=== PATIENT | male | born 1970 | race Caucasian/White ===

== ENCOUNTER 2020-03-01 10:52 | Outpatient (REF) | payer OTHER, SELFPAY | END 2020-03-01 10:53 | disposition home or self-care (01) | LOC: HO.HMGCX 10:52 | PROVIDERS: PCP Internal Medicine; Visit Provider Internal Medicine | DX: Z13.89 Encounter for screening for other disorder (principal) ==

== ENCOUNTER 2020-03-07 10:57 | Outpatient (REF) | payer OTHER, SELFPAY ==
--- NOTE | 2020-03-07 | US_ITS ---
EXAMINATION: US ABDOMEN COMPLETE CLINICAL INFORMATION: Elevated LFTs. COMPARISON: Abdominal ultrasound dated 02/17/2018. TECHNIQUE: Real-time imaging of the abdominal viscera. FINDINGS: PANCREAS: Normal. ABDOMINAL AORTA: The proximal, mid, and distal segments are normal in caliber. INFERIOR VENA CAVA: Visualized portions are normal. LIVER: The liver is normal in size. The liver contour is normal. There is diffuse increased liver echogenicity. No focal hepatic lesion. There is no intrahepatic biliary duct dilatation seen. GALLBLADDER: The gallbladder is physiologically distended without evidence of stones, sludge, wall thickening or pericholecystic fluid. There is an echogenic polyp measuring 0.5 x 0.6 x 0.6 cm. COMMON BILE DUCT: Normal in caliber measuring 0.5 cm in diameter. RIGHT KIDNEY: Normal. No hydronephrosis. No renal calculi or focal parenchymal lesions. The kidney measures 10.7 cm in maximum dimension. LEFT KIDNEY: Normal. No hydronephrosis. No renal calculi or focal parenchymal lesions. The kidney measures 11.3 cm in maximum dimension. SPLEEN: Normal. The spleen measures 10.7 cm in maximum dimension. FREE FLUID: None. IMPRESSION: Non-mobile echogenic polyp along the anterior gallbladder wall. No echogenic stones are wall thickening. Mild hepatic steatosis without focal lesion. The rest of the abdominal ultrasound is unremarkable.
== END 2020-03-07 10:58 | disposition home or self-care (01) ==
LOC: HO.HMGCX 10:57
PROVIDERS: PCP Internal Medicine; Visit Provider Internal Medicine
DX: R79.89 Other specified abnormal findings of blood chemistry (principal)
CPT/HCPCS: 76700

== ENCOUNTER 2020-10-27 11:39 | Outpatient (REF) | payer OTHER, SELFPAY ==
--- NOTE | ~2020-10-27 | XR_ITS ---
EXAMINATION: XR HIP, LEFT XR PRE MRI SCREENING CLINICAL INFORMATION: Rule out foreign body. Detached retina 20 years ago. Pre-MRI. Left lower quadrant pain. COMPARISON: None TECHNIQUE: Two views of the left hip. 3 views of the paranasal sinuses. FINDINGS: 3 views of the paranasal sinuses do not demonstrate a radiopaque foreign body. Visualized paranasal sinuses are unremarkable. No bony destruction identified. Mastoid air cells aerated. 2 views of the left hip do not demonstrate any evidence of acute fracture or dislocation. Hip joint space is maintained. No significant spurring is seen. No spurring about the greater trochanter is noted. XR/XR pre mri screening IMPRESSION: No significant bony abnormality of the left hip identified. No radiopaque foreign body seen about the orbits.
--- NOTE | ~2020-10-27 | XR_ITS ---
EXAMINATION: XR HIP, LEFT XR PRE MRI SCREENING CLINICAL INFORMATION: Rule out foreign body. Detached retina 20 years ago. Pre-MRI. Left lower quadrant pain. COMPARISON: None TECHNIQUE: Two views of the left hip. 3 views of the paranasal sinuses. FINDINGS: 3 views of the paranasal sinuses do not demonstrate a radiopaque foreign body. Visualized paranasal sinuses are unremarkable. No bony destruction identified. Mastoid air cells aerated. 2 views of the left hip do not demonstrate any evidence of acute fracture or dislocation. Hip joint space is maintained. No significant spurring is seen. No spurring about the greater trochanter is noted. XR/XR hip LT min 2V IMPRESSION: No significant bony abnormality of the left hip identified. No radiopaque foreign body seen about the orbits.
== END 2020-10-27 11:40 | disposition home or self-care (01) ==
LOC: HO.MRI 11:39
PROVIDERS: Visit Provider Internal Medicine
DX: M25.552 Pain in left hip (principal)
CPT/HCPCS: 73502

== ENCOUNTER 2020-11-13 10:44 | Outpatient (REF) | payer OTHER, SELFPAY | END 2020-11-13 10:45 | disposition home or self-care (01) | LOC: HO.MRI 10:44 | PROVIDERS: PCP Internal Medicine; Visit Provider Internal Medicine | DX: Z13.89 Encounter for screening for other disorder (principal) ==

== ENCOUNTER → 2021-01-31 10:05 | Outpatient (BNVA) | payer OTHER, SELFPAY | PROVIDERS: PCP Internal Medicine; Referring Provider Internal Medicine; Visit Provider Surgery | DX: K82.4 Cholesterolosis of gallbladder (principal) | CPT/HCPCS: 99202 ==

== ENCOUNTER 2021-03-15 09:10 | Outpatient (REF) | payer OTHER, SELFPAY ==
--- NOTE | 2021-03-15 | EMG_ITS ---
Right tibial and peroneal motor and sensory studies were performed. Right superficial peroneal and sural sensory studies were performed. Tibial H-reflex was obtained and paraspinal muscles were tested with a needle. IMPRESSION: This study did not reveal signs of generalized peripheral neuropathy. 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 MD TONY Sparks/JENNIFER / [id number]
--- NOTE | ~2021-03-15 | US_ITS ---
EXAMINATION: US ABDOMEN LIMITED CLINICAL INFORMATION: Cholesterolosis of the gallbladder. COMPARISON: Ultrasound abdomen complete 03/07/2020 and 02/17/2018. TECHNIQUE: Real-time imaging of the right upper quadrant abdominal viscera. FINDINGS: PANCREAS: The head and body the pancreas are normal. The tail is not well seen due to bowel gas. LIVER: The liver is normal in size. The liver contour is normal. Liver echotexture is slightly increased. No focal hepatic lesion. There is no intrahepatic biliary duct dilatation seen. GALLBLADDER: There are multiple gallbladder wall polyps. The largest measures 0.5 x 0.5 x 0.6 cm. No gallstones are seen. The gallbladder wall is otherwise normal. COMMON BILE DUCT: Normal in caliber measuring 0.5 cm in diameter. RIGHT KIDNEY: Normal. No hydronephrosis. No renal calculi or focal parenchymal lesions. The kidney measures 10.6 cm in maximum dimension. FREE FLUID: None. US/US abdomen limited IMPRESSION: Gallbladder wall polyps stable from prior exam. Slightly echogenic liver probably representing fatty infiltration. Limited visualization of the tail the pancreas.
== END 2021-03-15 09:11 | disposition home or self-care (01) ==
LOC: HO.NEURO 09:10
PROVIDERS: PCP Internal Medicine; Visit Provider Family Medicine
DX: G62.9 Polyneuropathy, unspecified (principal); K82.4 Cholesterolosis of gallbladder
CPT/HCPCS: 76705; 95886; 95909

== ENCOUNTER → 2021-03-22 15:25 | Outpatient (BNVA) | payer OTHER, SELFPAY | PROVIDERS: PCP Internal Medicine; Referring Provider Internal Medicine; Visit Provider Surgery | DX: K82.4 Cholesterolosis of gallbladder (principal) | CPT/HCPCS: 99212 ==

== ENCOUNTER 2023-02-06 14:13 | Outpatient (AMB) | payer OTHER, SELFPAY ==
--- NOTE | 2023-02-06 14:15 | A.OFFVIS_ITS ---
Intake Vital Signs 02/06/23 14:21 Height 5 ft 4 in Weight 180 lb BMI 30.9 BP 121/77 Blood Pressure Location Rt brachial Position Sitting Pulse 72 Intake Visit Reasons: Hemorrhoids Intake Note: This patient presents for an assessment for hemorrhoids. Patient c/o; reports no complaints, reports had [place]08[place] [facility] Stroboroma Operator Required: No Accompanied by: Self / Same As Patient Allergies morphine Allergy (Verified 02/06/23 14:22) Swelling Medication List - Last Reconciled 02/06/23 by Freddie Rodriguez MD dorzolamide 2% 1 drp ophthalmic (eye) TID hydrochlorothiazide 25 mg PO DAILY latanoprost 0.005% 1 drp ophthalmic (eye) DAILY losartan 25 mg PO DAILY timolol maleate 0.5% 1 drp ophthalmic (eye) DAILY PRN valacyclovir 500 mg PO DAILY HPI Hemorrhoids HPI Details 52-year-old male referred for hemorrhoid s. He says that he has this occasional pinching pain in his anus. He says his notices for about 8 months now. He says that this does not happen frequently. He says that he would be spontaneous and random. He denies any bleeding. He denies any mass He says he did have some history of constipation in the past. He says that this has improved with intake of fiber supplements. He had a colonoscopy in [facility] last December, showing hemorrhoids as well as small polyp. [facility] Medical History (Updated 02/06/23 @ 14:39 by Freddie Rodriguez MD) Internal and external hemorrhoids without complication Chronic back pain Gallbladder polyp Surgical History History of colonoscopy (~01/14/23) Family History Family/Other Breast cancer Social History Alcohol intake: never Patient Tobacco Use Status: Never used Tobacco Review of Systems Const Denies chills and Denies fever(s) Card Denies chest pain, Denies dyspnea and Denies dyspnea on exertion Resp Denies cough, Denies dyspnea and Denies dyspnea on exertion GI Denies hematochezia and Denies change in bowel habits Denies hematuria and Denies difficulty urinating Musc Reports back pain and Denies limited range of motion Neuro Denies focal weakness and Denies convulsions Psych Denies depression and Denies mood swings Physical Exam Vital Signs: Last Vital Signs Pulse 72 02/06/23 14:21 BP 121/77 02/06/23 14:21 BMI result Body Mass Index 30.9 Const General: comfortable and no acute distress Orientation/consciousness: patient oriented x3 Neck Neck: Yes no lymphadenopathy Resp Auscultation: clear to auscultation bilaterally Cardio Rhythm: regular rhythm GI Other: Rectal exam - non bulky external hemorrhoids, no other lesions, anoscopy as described Palpation (GI): Soft to palpation, nontender and no guarding Neuro General: patient oriented x3 Office Procedures Anoscopy He was in jimenez-knife position. The anoscope was gently inserted. A full examination of the anal canal was done. He did have internal and external hemorrhoids on both the left and right side. These were moderate size. There were no other lesions. There was no fissure. There was no bleeding. There was no induration on digital exam. There was no tenderness [id number] Assessment & Plan Assessment & Plan (1) Internal and external hemorrhoids without complication: Code(s): K64.4 - Residual hemorrhoidal skin tags; K64.8 - Other hemorrhoids Plan: He has internal and external hemorrhoids as described above. He has very minimal symptoms. He describes occasional itching pain I told him that I would not recommend proceeding with hemorrhoidectomy at this time. I told him a ever that if he has worsening symptoms or his bleeding, and frequent swelling, he can come back to the office to be re-evaluated I also emphasized to him the importance of continuing with his fiber supplement. Coding Level of Care Code New Pt Level 3 (12922) Diagnoses Internal and external hemorrhoids without complication K64.4; K64.8 CPT Codes Details - CPT: 23355-[id number] ([id number])
[2023-02-06 14:21] VITALS: BP 121/77; PULSE 72; BMI 30.9
== END 2023-02-06 14:35 | disposition home or self-care (01) ==
PROVIDERS: PCP Internal Medicine; Referring Provider Internal Medicine; Visit Provider Surgery
DX: K64.8 Other hemorrhoids (principal)
CPT/HCPCS: 46600; 99213

== ENCOUNTER → 2023-02-06 14:13 | Outpatient (BNVA) | payer OTHER, SELFPAY | PROVIDERS: PCP Internal Medicine; Referring Provider Internal Medicine; Visit Provider Surgery | DX: K64.4 Residual hemorrhoidal skin tags (principal); K64.8 Other hemorrhoids | CPT/HCPCS: 46600; 99212 ==

== ENCOUNTER 2023-06-24 13:56 | Outpatient (REF) | payer OTHER, SELFPAY ==
[2023-06-24 15:09] LABS: Influenza A PCR NEGATIVE (Negative); Influenza B PCR NEGATIVE (Negative); Resp Syncy Virus RNA Qual PCR NEGATIVE (Negative); SARS COV2 PCR INHOUSE POSITIVE (Negative)
[2023-06-24 17:26] LABS: MANUAL DIFF FLAG NO
[2023-06-24 17:30] LABS: Basophils Absolute Auto 0.1 X10*3/uL (0.0-0.2); Basophils Percent Auto 0.9 % (0-2); Eosinophils Absolute Auto 0.3 X10*3/uL (0.0-0.4); Eosinophils Percent Auto 4.6 % (0-4); Hematocrit 43.2 % (42.0-52.0); Hemoglobin 15.3 g/dl (14.0-18.0); Imm Gran Abs Auto 0.02 X10*3/uL (0.00-0.03); Imm Gran Pct Auto 0.4 % (0.0-0.4); Lymphocytes Absolute Auto 1.3 X10*3/uL (1.2-4.9); Lymphocytes Percent Auto 24.2 % (20-40); Mean Corpuscular HGB Conc 35.4 g/dl (31.0-36.0); Mean Corpuscular Hemoglobin 34.6 pg (27.0-33.0); Mean Corpuscular Volume 97.7 fL (80.0-98.0); Mean Platelet Volume 12.2 fL (9.4-12.4); Monocytes Absolute Auto 0.7 X10*3/uL (0.1-1.2); Monocytes Percent Auto 12.2 % (2-11); Neutrophils Absolute Auto 3.1 x10*3/uL (2.0-8.3); Neutrophils Percent Auto 57.7 % (45-73); Platelet Count 206 X10*3/uL (160-400); Red Blood Count 4.42 X10*6/uL (4.60-5.80); Red Cell Distribution Width 11.5 % (11.0-16.0); White Blood Count 5.4 X10*3/uL (4.8-10.8)
[2023-06-24 18:07] LABS: Alanine Aminotransferase 52 U/L (0-40); Albumin Level 4.1 g/dL (3.5-5.0); Alkaline Phosphatase 88 U/L (39-117); Anion Gap 12 (12-20); Aspartate Amino Transferase 32 U/L (5-37); Blood Urea Nitrogen 10 mg/dL (9-16); Calcium 9.4 mg/dL (8.4-10.2); Carbon Dioxide 29 mmol/L (22-29); Chloride 104 mmol/L (96-108); Estimated Glomerular Filt Rate > 60; Glucose Random 50 mg/dL (60-115); Potassium 3.5 mmol/L (3.3-5.1); Sodium 141 mmol/L (135-145); Total Protein 7.5 g/dL (6.5-8.0)
== END 2023-06-24 13:57 | disposition home or self-care (01) ==
LOC: HO.CHCLNP 13:56
PROVIDERS: Visit Provider Family Medicine
DX: Z11.52 Encounter for screening for COVID-19 (principal); J06.9 Acute upper respiratory infection, unspecified; R05.3 Chronic cough
CPT/HCPCS: 0241U; 36415; 80053; 85025

== ENCOUNTER 2023-06-30 10:41 | Outpatient (REF) | payer OTHER, SELFPAY ==
--- NOTE | ~2023-06-30 | XR_ITS ---
EXAMINATION: XR CHEST CLINICAL INFORMATION: Upper respiratory tract infection. COMPARISON: None available. TECHNIQUE: 2 views of the chest were obtained. FINDINGS: There is no gross pneumothorax. Lung volumes are low. Heart size is normal. Mild dextroscoliosis of the thoracic spine. Degenerative changes in the thoracic spine. No pleural effusion. No focal consolidation to suggest pneumonia. XR/XR chest 2V IMPRESSION: No evidence of pneumonia.
== END 2023-06-30 10:42 | disposition home or self-care (01) ==
LOC: HO.XRAY 10:41
PROVIDERS: PCP Family Medicine; Visit Provider Family Medicine
DX: J06.9 Acute upper respiratory infection, unspecified (principal)
CPT/HCPCS: 71046

== ENCOUNTER 2023-07-08 10:10 | Outpatient (REF) | payer OTHER, SELFPAY ==
[2023-07-08 15:03] LABS: Estimated Average Glucose 71 mg/dL; Hemoglobin A1c % 4.1 % (<6.0)
[2023-07-08 15:20] LABS: Glucose Random 66 mg/dL (60-115)
[2023-07-08 15:40] LABS: Insulin 11 uU/mL (2-29)
== END 2023-07-08 10:11 | disposition home or self-care (01) ==
LOC: HO.CHCLDS 10:10
PROVIDERS: Visit Provider Nurse Practitioner Primary Care
DX: E16.2 Hypoglycemia, unspecified (principal)
CPT/HCPCS: 36415; 82947; 83036; 83525

== ENCOUNTER 2024-10-13 11:55 | Outpatient (REF) | payer OTHER, SELFPAY ==
--- OUTSIDE RECORDS SUMMARY | 2024-10-13 12:43 | XMS_ITS | Encounter Summary ---
Author Organization [employer] Address [address] [place] [address] Care Team Providers Care Tower Switch Operator Name Role Phone Laura Moyer MD Primary Care Provider [phone] Kristen Meneses MD Primary Care Provider [phone] Encounter Details Date Type Department Care Team ([facility] st Contact Info) Description 01/23/2023 Abstract [facility] [address] [place] [address] Laura Moyer MD [address] [place] [address] Social History Tobacco Use Types Packs/Day Years Used Date Smoking Tobacco: Never Passive Smoke Exposure: Never Smokeless Tobacco: Never Alcohol Use Standard Drinks/Week Comments Never 0 (1 standard drink = 0.6 oz pur e alcohol) Depression Answer Date Recorded Patient Health Questionnaire-9 Score 0 08/02/2022 Depression Answer Date Recorded Patient Health Questionnaire-2 Score 0 08/02/2022 Sex and Gender Information Value Date Recorded Sex Assigned at Male 03/18/2022 10:33 AM EDT Legal Sex Male 10:33 AM EDT Gender Identity Choose not to disclose 10:33 AM EDT Sexual Orientation Choose not to disclose 2021 10:33 AM EDT documented as of this encounter Plan of Treatment Not on file documented as of this encounter Visit Diagnoses Not on filedocumented in this encounter Additional Health Concerns Assessment Noted Time PHQ-9 Depression Total Score: 0 08/03/19 23 4:14 PM EDT documented as of this encounter Care Teams Tower Switch Operator Relationship Specialty Start Date End Date Laura Moyer MD [address] [place] [address] PCP - General Internal Medicine 02/05/18 06/30/24 Kristen Meneses MD [address] [place] [address] PCP - General Family Medicine 07/01/24 [facility] [address] , [place] [address] Consulting Physician 05/19/20 MD [facility] Consulting Physician 05/19/23 documented as of this encounter
[2024-10-13 14:26] LABS: MANUAL DIFF FLAG NO
[2024-10-13 14:35] LABS: Basophils Absolute Auto 0.1 X10*3/uL (0.0-0.2); Basophils Percent Auto 1.3 % (0-2); Eosinophils Absolute Auto 0.4 X10*3/uL (0.0-0.4); Eosinophils Percent Auto 8.2 % (0-4); Hematocrit 42.9 % (42.0-52.0); Hemoglobin 15.2 g/dl (14.0-18.0); Imm Gran Abs Auto 0.02 X10*3/uL (0.00-0.03); Imm Gran Pct Auto 0.4 % (0.0-0.4); Lymphocytes Absolute Auto 1.1 X10*3/uL (1.2-4.9); Lymphocytes Percent Auto 21.5 % (20-40); Mean Corpuscular HGB Conc 35.4 g/dl (31.0-36.0); Mean Corpuscular Hemoglobin 34.1 pg (27.0-33.0); Mean Corpuscular Volume 96.2 fL (80.0-98.0); Mean Platelet Volume 12.3 fL (9.4-12.4); Monocytes Absolute Auto 0.5 X10*3/uL (0.1-1.2); Monocytes Percent Auto 9.9 % (2-11); Neutrophils Absolute Auto 3.1 x10*3/uL (2.0-8.3); Neutrophils Percent Auto 58.7 % (45-73); Platelet Count 184 X10*3/uL (160-400); Red Blood Count 4.46 X10*6/uL (4.60-5.80); Red Cell Distribution Width 11.9 % (11.0-16.0); White Blood Count 5.3 X10*3/uL (4.8-10.8)
[2024-10-13 14:37] LABS: Alanine Aminotransferase 47 U/L (0-40); Albumin Level 4.2 g/dL (3.5-5.0); Alkaline Phosphatase 73 U/L (39-117); Anion Gap 12 (12-20); Aspartate Amino Transferase 37 U/L (5-37); Bilirubin Total 1.6 mg/dL (0.0-1.0); Blood Urea Nitrogen 12 mg/dL (9-16); C Reactive Protein < 0.04 mg/dL (< or = 0.50); Calcium 8.9 mg/dL (8.4-10.2); Carbon Dioxide 25 mmol/L (22-29); Chloride 106 mmol/L (96-108); Cholesterol 148 mg/dL (<200); Estimated Glomerular Filt Rate > 60; Glucose Random 80 mg/dL (60-115); HDL Cholesterol 28 mg/dL (>40); LDL Cholesterol Calculated 96 mg/dL (<100); Potassium 3.8 mmol/L (3.3-5.1); Sodium 139 mmol/L (135-145); Total Protein 7.1 g/dL (6.5-8.0); Triglycerides 123 mg/dL (<150)
[2024-10-13 15:33] LABS: Erythrocyte Sedimentation Rate 2 MM/HR (0-15)
[2024-10-13 18:29] LABS: Influenza A PCR NEGATIVE (Negative); Influenza B PCR NEGATIVE (Negative); Resp Syncy Virus RNA Qual PCR NEGATIVE (Negative); SARS COV2 PCR INHOUSE NEGATIVE (Negative)
[2024-10-14 18:53] LABS: Immunoglobulin A 421 mg/dL (47-310); Transglutaminase IgA <1.0 U/mL
== END 2024-10-13 11:56 | disposition home or self-care (01) ==
LOC: HO.CHCLDS 11:55
PROVIDERS: Visit Provider Family Medicine
DX: K59.00 Constipation, unspecified (principal); R10.84 Generalized abdominal pain; I10 Essential (primary) hypertension; J30.89 Other allergic rhinitis
CPT/HCPCS: 0241U; 36415; 80053; 80061; 82784; 85025; 85652; 86140; 86364

== ENCOUNTER 2024-10-15 10:50 | Outpatient (REF) | payer OTHER, SELFPAY ==
--- OUTSIDE RECORDS SUMMARY | 2024-10-15 11:40 | XMS_ITS | Encounter Summary ---
Author Organization [employer] Address [address] [place] [address] Care Team Providers Care Stars Analytical Lead Name Role Phone Laura Moyer MD Primary Care Provider [phone] Kristen Meneses MD Primary Care Provider [phone] Encounter Details Date Type Department Care Team ([facility] st Contact Info) Description 01/23/2023 Abstract [facility] [address] [place] [address] Laura Moyer MD [address] [place] [address] Social History Tobacco Use Types Packs/Day Years [...] documented as of this encounter Care Teams Stars Analytical Lead Relationship Specialty Start Date End Date Laura Moyer MD [address] [place] [address] PCP - General Internal Medicine 02/05/18 06/30/24 Kristen Meneses MD [address] [place] [address] PCP - General Family Medicine 07/01/24 [facility] [address] , [place] [address] Consulting Physician 05/19/20 MD [facility] Consulting Physician 05/19/23 documented as of this encounter
[2024-10-21 16:34] LABS: Calprotectin, Fecal 31 mcg/g
== END 2024-10-15 10:51 | disposition home or self-care (01) ==
LOC: HO.CHCLNP 10:50
PROVIDERS: Visit Provider Family Medicine
DX: K59.00 Constipation, unspecified (principal); R10.84 Generalized abdominal pain
CPT/HCPCS: 83993; 87338